=== PATIENT | female | born 1960 | race Caucasian/White ===

== ENCOUNTER 2021-05-29 09:42 | Outpatient (REF) | payer MEDICARE, MEDICAID, SELFPAY ==
--- NOTE | ~2021-05-29 | XR_ITS ---
EXAMINATION: BILATERAL KNEES STANDING. RIGHT KNEE 2 VIEWS. CLINICAL INFORMATION: Right knee pain. COMPARISON: Left knee 4 views 07/20/2018 TECHNIQUE: AP bilateral knees standing and right knee 2 views. FINDINGS: AP bilateral knee: There is moderate reduction in the medial and mild reduction in the lateral compartment joint space with no visible acute fracture, dislocation or loose bodies. Right knee: There is loss of patellofemoral compartment joint space with moderate periarticular is spurring. No loose body seen. There is minimal suprapatellar joint effusion. No bony erosive changes. The soft tissues are normal. XR/XR knee standing BI IMPRESSION: Degenerative arthritic changes in the tricompartment of right knee with moderate osteophytosis in patellofemoral compartment. There is minimal suprapatellar joint effusion. Mild degenerative arthritic changes left knee medial and lateral compartment.
--- NOTE | ~2021-05-29 | XR_ITS ---
EXAMINATION: BILATERAL KNEES STANDING. RIGHT KNEE 2 VIEWS. CLINICAL INFORMATION: Right knee pain. COMPARISON: Left knee 4 views 07/20/2018 TECHNIQUE: AP bilateral knees standing and right knee 2 views. FINDINGS: AP bilateral knee: There is moderate reduction in the medial and mild reduction in the lateral compartment joint space with no visible acute fracture, dislocation or loose bodies. Right knee: There is loss of patellofemoral compartment joint space with moderate periarticular is spurring. No loose body seen. There is minimal suprapatellar joint effusion. No bony erosive changes. The soft tissues are normal. XR/XR knee RT 2V IMPRESSION: Degenerative arthritic changes in the tricompartment of right knee with moderate osteophytosis in patellofemoral compartment. There is minimal suprapatellar joint effusion. Mild degenerative arthritic changes left knee medial and lateral compartment.
== END 2021-05-29 09:43 | disposition home or self-care (01) ==
LOC: HO.HOSX 09:42
PROVIDERS: Visit Provider Orthopaedic Surgery
DX: M17.11 Unilateral primary osteoarthritis, right knee (principal)
CPT/HCPCS: 73560; 73565; 99202

== ENCOUNTER 2021-12-11 11:56 | Outpatient (REF) | payer MEDICARE, MEDICAID, SELFPAY ==
--- NOTE | ~2021-12-11 | MM_ITS ---
EXAMINATION: MM SCREENING DIGITAL BREAST TOMOSYNTHESIS, BILATERAL CLINICAL INFORMATION: Screening. Asymptomatic. The lifetime risk of breast cancer based on the Tyrer-Cuzick Model is 6%. COMPARISON: Mammography: 08/07/2019, 07/02/2018, 05/28/2017 TECHNIQUE: Digital breast tomosynthesis is performed in both the craniocaudal and mediolateral oblique views along with computer-aided detection (CAD). Synthesized 2D images are generated from the tomosynthesis. Additional CC and bilateral MLO views are provided. FINDINGS: There are scattered areas of fibroglandular density (ACR BI-RADS breast composition Category b). Parenchymal pattern is similar to prior studies. There is no interval mass or developing density or architectural abnormality. Nodular asymmetry mid upper outer left breast is stable. There may be an incidental hamartoma in this area. There are no abnormal calcifications. The bilateral axilla and skin contours are unremarkable. No significant changes. MM/MM tomosynthesis screening BI IMPRESSION: No mammographic evidence of malignancy. ASSESSMENT: BI-RADS 2: Benign RECOMMENDATION: Routine annual mammography screening. This patient's information was entered into a reminder system with a target due date for their next mammogram.
== END 2021-12-11 11:57 | disposition home or self-care (01) ==
LOC: HO.MAMMO 11:56
PROVIDERS: PCP Internal Medicine; Visit Provider Internal Medicine
DX: Z12.31 Encounter for screening mammogram for malignant neoplasm of breast (principal)
CPT/HCPCS: 77063; 77067

== ENCOUNTER 2022-12-12 12:11 | Outpatient (REF) | payer MEDICARE, MEDICAID, SELFPAY ==
--- NOTE | ~2022-12-12 | MM_ITS ---
EXAMINATION: MM SCREENING DIGITAL BREAST TOMOSYNTHESIS, BILATERAL CLINICAL INFORMATION: Screening. Asymptomatic. The lifetime risk of breast cancer based on the Tyrer-Cuzick Model is 6.2%. COMPARISON: Mammography: 12/11/2021 and studies dating back to 05/10/2016. TECHNIQUE: Digital breast tomosynthesis is performed in both the craniocaudal and mediolateral oblique views along with computer-aided detection (CAD). Synthesized 2D images are generated from the tomosynthesis. FINDINGS: There are scattered areas of fibroglandular density (ACR BI-RADS breast composition Category b). There are no significant masses, abnormal calcifications, or other abnormalities. There are stable bilateral densities one of which in the right breast laterally and superiorly represents a lymph node. MM/MM tomosynthesis screening BI IMPRESSION: No significant changes from prior exam. ASSESSMENT: BI-RADS 2: Benign RECOMMENDATION: Routine annual mammography screening. This patient's information was entered into a reminder system with a target due date for their next mammogram.
== END 2022-12-12 12:12 | disposition home or self-care (01) ==
LOC: HO.MAMMO 12:11
PROVIDERS: Visit Provider Internal Medicine
DX: Z12.31 Encounter for screening mammogram for malignant neoplasm of breast (principal)
CPT/HCPCS: 77063; 77067

== ENCOUNTER 2023-12-16 11:50 | Outpatient (REF) | payer OTHER, SELFPAY | END 2023-12-16 11:51 | disposition home or self-care (01) | LOC: HO.MAMMO 11:50 | PROVIDERS: PCP Internal Medicine; Visit Provider Internal Medicine | DX: Z12.31 Encounter for screening mammogram for malignant neoplasm of breast (principal) | CPT/HCPCS: 77063; 77067 ==

== ENCOUNTER → 2023-12-16 12:00 | Outpatient (BNV) | payer OTHER, SELFPAY | PROVIDERS: PCP Internal Medicine; Visit Provider Radiology Diagnostic Radiology | DX: Z12.31 Encounter for screening mammogram for malignant neoplasm of breast (principal) | CPT/HCPCS: 77063; 77067 ==

== ENCOUNTER 2024-12-21 11:36 | Outpatient (REF) | payer OTHER, SELFPAY | END 2024-12-21 11:37 | disposition home or self-care (01) | LOC: HO.MAMMO 11:36 | PROVIDERS: PCP Internal Medicine; Visit Provider Internal Medicine | DX: Z12.31 Encounter for screening mammogram for malignant neoplasm of breast (principal) | CPT/HCPCS: 77063; 77067 ==

== ENCOUNTER → 2024-12-21 11:45 | Outpatient (BNV) | payer OTHER, SELFPAY | PROVIDERS: PCP Internal Medicine; Visit Provider Internal Medicine | DX: Z12.31 Encounter for screening mammogram for malignant neoplasm of breast (principal) | CPT/HCPCS: 77063; 77067 ==